=== PATIENT | female | born 1985 | race Caucasian/White ===

== ENCOUNTER 2022-12-22 11:50 | Emergency (ER) | payer OTHER ==
[~2022-12-22] VITALS: Ht 165.1 cm; Wt 71.3 kg
--- OUTSIDE RECORDS SUMMARY | ~2022-12-22 | XMS | Continuity of Care Document ---
Demographics + + + | Address | [address] | | | [place] [address] | + + + | Preferred Language | Unknown | + + + | Marital Status | Never | + + + | Bahai Affiliation | Unknown | + + + | Race | White | + + + | Ethnic Group | Not or | + + + Author + + + | Author | [facility] | + + + | Organization | [facility] | + + + | Address | [address] | | | [place] [address] | + + + | Phone | | + + + Care Team Providers + + + + | Care Front Office Supervisor Name | Role | Phone | + + + + Unavailable | Unavailable | + + + + Unavailable | Unavailable | + + + + Allergies and Intolerances + + + + + + | date | description | facility | reaction | severity | + + + + + + | (no date) | No Known | [facility] | (no reaction) | (no severity) | | | Allergies | | | | + + + + + + Encounters No information. Functional Status No information. Immunizations No information. Medications + + + + | date | description | facility | + + + + | 2022-11-28 00:00 | PENICILLIN V POTASSIUM | [facility] | + + + + | 2022-11-28 00:00 | HYDROCODONE | [facility] | | | BIT/ACETAMINOPHEN | | + + + + Problems + + + + | date | description | facility | + + + + | 2022-11-28 00:00 | Pharyngitis due to | [facility] | | | Streptococcus species | | + + + + | 2022-11-28 09:30 | STREPTOCOCCAL PHARYNGITIS | [facility] | + + + + | 2022-11-28 09:30 | ACUTE PHARYNGITIS, | [facility] | | | UNSPECIFIED | | + + + + | 2022-11-28 09:30 | LOCAL INFECTION OF THE | [facility] | | | SKIN AND SUBCUTANEOUS TISSU | | | | | | + + + + Procedures No information. Results/Labs +--------+--------+ +---------+--------+---------+ | test | date | facility | value | unit | notes | +--------+--------+ +---------+--------+---------+ + + | Result panel 1 | + + + + + + + + + | | 2022-11-28 | [facility] NE[facility] | (missing[facility] | (missing) | | (unavailable [facility] | | | | + + + + + + + + + | Result panel 2 | + + + + + + + + + | | 2022-11-28 | [facility] | NEGATIVE | (missing) | (missing) | | (unavailable | [facility] | | | | + + + + + + + + + | Result panel 3 | + + + + + + + + + | | 2022-11-28 | [facility] | NEGATIVE | (missing) | (missing) | | (unavailable | [facility]03[facility] | | | | + + + + + + + + + | Result panel 4 | + + + + + + + + + | | 2022-11-28 | [facility] | NEGATIVE | (missing) | (missing) | | (unavailable | [facility]03:07 [facility] | | | | + + + + + + + Social History + + + + | date | description | facility | + + + + | 2022-11-28 00:00 | Unknown if ever smoked | [facility] | + + + + Vital Signs + + + +---------+ | date | measurement | value | units | + + + +---------+ | 2022-11-28 00:00 | BMI | 25.8 | kg/m2 | + + + +---------+ | 2022-11-28 00:00 | BP_diastolic | 76 | mmHg | + + + +---------+ | 2022-11-28 00:00 | BP_systolic | 126 | mmHg | + + + +---------+ | 2022-11-28 00:00 | heart_rate | 77 | /min | + + + +---------+ | 2022-11-28 00:00 | height_metric | 165.1 | cm | + + + +---------+ | 2022-11-28 00:00 | height_standard | 65 | in | + + + +---------+ | 2022-11-28 00:00 | o2_saturation | 97 | % | + + + +---------+ | 2022-11-28 00:00 | respiration_rate | 16 | /min | + + + +---------+ | 2022-11-28 00:00 | temperature_metric | 36.89 | C | | | | | | + + + +---------+ | 2022-11-28 00:00 | | 98.4 | F | | | temperature_standar | | | | | d | | | + + + +---------+ | 2022-11-28 00:00 | weight_metric | 70.3 | kg | + + + +---------+ | 2022-11-28 00:00 | weight_standard | 154.98 | lb | + + + +---------+ | 2022-11-28 00:00 | weight_standard | 154.99 | lb | + + + +---------+"
--- OUTSIDE RECORDS SUMMARY | ~2022-12-22 | XMS | Continuity of Care Document ---
Demographics + + + | Address | [address] | | | [place] [address] | + + + | Preferred Language | Unknown | + + + | Marital Status | Never | + + + | Scientologist Affiliation | Unknown | + + + | Race | White | + + + | Ethnic Group | Not or | + + + Author + + + | Author | [facility] | + + + | Organization | [facility] | + + + | Address | [address] | | | [place] [address] | + + + | Phone | | + + + Care Team Providers + + + + | Care Nurse'S Companion Name | Role | Phone | + [...] 00:00 | PENICILLIN V POTASSIUM | [facility] | + + + + | 2022-11-28 00:00 | HYDROCODONE | [facility] | | | BIT/ACETAMINOPHEN | | + + + + Problems + + + + | date | description | facility | + + + + | 2022-11-28 00:00 | Pharyngitis due to | [facility] | | | Streptococcus species | | [...] | Unknown if ever smoked | [facility] | + + + + Vital Signs [...]
[~2022-12-22 11:50] MED LIST: HYDROCODON-ACE1 EA11 PO; PENICILLIN V P500 MG PO
--- OUTSIDE RECORDS SUMMARY | 2022-12-22 11:52 | XMS ---
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 Bernardo VISIT COUNT (12 MO.) 2 [facility] TOTAL 2 NOTE: Visits indicate total known visits. ED/UCC VISIT TRACKING (12 MO.) 12/22/2022 11:[address] [facility] TYPE: Emergency COMPLAINT: - VAGINAL CRAMPING 11/28/2022 09:[address] [facility] TYPE: Emergency COMPLAINT: - FLU SYMPTOMS, BODY ACHES, SORE/SWOLLEN THROAT DIAGNOSES: - Acute pharyngitis, unspecified - Contact with and (suspected) exposure to COVID-19 - Local infection of the skin and subcutaneous tissue, unspecified - Streptococcal pharyngitis INPATIENT VISIT TRACKING (12 MO.) No inpatient visits to display in this time frame [email or web address]
[2022-12-22 12:25] LABS: BILIRUBIN, URINE NEGATIVE (negative); BLOOD/HGB, URINE NEGATIVE (Negative); KETONE, URINE NEGATIVE (Negative); LEUK ESTERASE, URINE TRACE (negative); NITRITE, URINE NEGATIVE (negative); PH, URINE 5.5 (5-7)
[2022-12-22 12:34] LABS: RED BLOOD CELLS, URINE 0-1 /hpf (0-5)
[2022-12-22 12:35] LABS: BACTERIA, URINE NONE SEEN /hpf (negative); CASTS, URINE NONE SEEN \\lpf; COLLECTION TYPE, URINE CLEAN CATCH; CRYSTALS, URINE NONE SEEN (0-1+); EPITHELIAL CELLS, URINE SQUAMOUS 3+ /lpf (0-1+); REFLEX CULTURE, URINE No (No); WHITE BLOOD CELLS, URINE 0-1 /HPF (0-5)
[2022-12-22 12:46] LABS: BASOPHILS 0.5 % (0-2); EOSINOPHILS 0.4 % (0-6); HEMOGLOBIN 13.4 g/dL (12.0-18.0); LYMPHOCYTES 22.5 % (24-44); MCH 30.8 (27-36); MCHC 33.5 g/dl (30-36); MCV 91.7 fl (81-99); MONOCYTES 8.1 % (0-12); NEUTROPHILS 68.5 % (39-80); PLATELET COUNT 284 K/uL (140-440); RBC 4.37 M/ul (4.3-5.7)
[2022-12-22 13:25] LABS: ALBUMIN 3.7 g/dL (3.4-5.0); ALBUMIN/GLOBULIN RATIO 1.09 (1.1-2.4); ANION GAP 15.8 (7-21); BILIRUBIN, TOTAL 0.4 ng/dL (0.2-1.0); BUN/CREATININE RATIO 21.31 (6.0-28.6); CALCIUM 8.9 mg/dL (8.5-10.1); CREATININE, SERUM 0.61 mg/dL (0.55-1.02); POTASSIUM 3.8 mmol/L (3.5-5.1); PROTEIN, TOTAL 7.1 g/dL (6.4-8.2)
[2022-12-22] MEDS ORDERED: HYDROCODON-ACE1 EA10 PO ×2 (17:54)
[2022-12-22 18:06] VITALS: BP 110/78
== END 2022-12-22 18:08 | disposition home or self-care (01) ==
LOC: ED 11:50
PROVIDERS: Emergency Medicine
DX: O26.891 Other specified pregnancy related conditions, first trimester (principal); R10.2 Pelvic and perineal pain; Z3A.01 Less than 8 weeks gestation of pregnancy
CPT/HCPCS: 36415; 76801; 76817; 80053; 81001; 84702; 84703; 85025; 96374; 96375; 99284-25; J1170; J2405

== ENCOUNTER 2023-02-14 10:54 | Emergency (ER) | payer OTHER ==
[~2023-02-14] VITALS: Ht 165.1 cm; Wt 73.5 kg
[~2023-02-14 10:54] MED LIST changes: +HYDROCODON-ACE1 EA10 PO
[2023-02-14] MEDS ORDERED: PENICILLIN V P500 MG PO (12:07)
[2023-02-14] MEDS ORDERED: HYDROCODON-ACE1 EA11 PO (12:07)
[2023-02-14 12:21] VITALS: BP 116/75
== END 2023-02-14 12:14 | disposition home or self-care (01) ==
LOC: ED 10:54
DX: J02.0 Streptococcal pharyngitis (principal); B95.0 Streptococcus, group A, as the cause of diseases classified elsewhere
CPT/HCPCS: 87651; 99283; A9270

== ENCOUNTER 2024-03-21 14:33 | Emergency (ER) | payer OTHER ==
[~2024-03-21] VITALS: Ht 165.1 cm; Wt 82.5 kg
[~2024-03-21 14:33] MED LIST changes: +NASAL DECONGEST30 MG PO
[2024-03-21 14:56] LABS: BASOPHILS 0.3 % (0-2); EOSINOPHILS 0.9 % (0-6); HEMATOCRIT 36.6 % (35.0-50.0); HEMOGLOBIN 12.5 g/dL (12.0-18.0); LYMPHOCYTES 13.3 % (24-44); MCH 30.7 (27-36); MCV 90.2 fl (81-99); NEUTROPHILS 77.5 % (39-80); PLATELET COUNT 264 K/uL (140-440); RBC 4.06 M/ul (4.3-5.7); RDW 13.7 (10.5-15.0)
[2024-03-21] MEDS ORDERED: ondansetron HCL 4 MG/2 ML VIAL IV ONE (15:00)
[2024-03-21] MEDS ORDERED: SODIUM CHLORIDE 0.9% 500 ML IV ONE (15:00)
[2024-03-21 15:05] LABS: ALBUMIN 2.9 g/dL (3.4-5.0); ALBUMIN/GLOBULIN RATIO 0.66 (1.1-2.4); ANION GAP 12.3 (7-21); BILIRUBIN, TOTAL 0.2 ng/dL (0.2-1.0); BUN/CREATININE RATIO 15.85 (6.0-28.6); CALCIUM 8.3 mg/dL (8.5-10.1); CREATININE, SERUM 0.82 mg/dL (0.55-1.02); POTASSIUM 3.3 mmol/L (3.5-5.1); PROTEIN, TOTAL 7.3 g/dL (6.4-8.2)
[2024-03-21 15:18] LABS: BILIRUBIN, URINE POSITIVE (negative); BLOOD/HGB, URINE LARGE (Negative); KETONE, URINE SMALL (Negative); LEUK ESTERASE, URINE NEGATIVE (negative); NITRITE, URINE NEGATIVE (negative); PH, URINE 6.5 (5-7)
[2024-03-21 15:23] LABS: EPITHELIAL CELLS, URINE SQUAMOUS 3+ /lpf (0-1+)
[2024-03-21 15:25] LABS: BACTERIA, URINE RARE /hpf (negative); CASTS, URINE NONE SEEN \\lpf; COLLECTION TYPE, URINE CLEAN CATCH; CRYSTALS, URINE NONE SEEN (0-1+); REFLEX CULTURE, URINE No (No)
[2024-03-21] MEDS ORDERED: CEFEPIME HCL/D5W 2 GM/100 ML PIGGYBACK IV ONE (16:15)
[2024-03-21] MEDS ORDERED: ONDANSETRON ODT4 MG PO (16:51)
[2024-03-21 17:18] VITALS: BP 116/74
== END 2024-03-21 17:19 | disposition home or self-care (01) ==
LOC: ED 14:33
PROVIDERS: Emergency Medicine
DX: R11.2 Nausea with vomiting, unspecified (principal)
CPT/HCPCS: 36415; 80053; 81001; 83735; 84703; 85025; 96361; 96365; 96375; 99284-25; J0692; J2405; J7040

== ENCOUNTER 2024-11-20 11:14 | Emergency (ER) | payer OTHER ==
[~2024-11-20] VITALS: Ht 165.1 cm; Wt 80.0 kg
[~2024-11-20 11:14] MED LIST changes: +ONDANSETRON ODT4 MG PO
[2024-11-20] MEDS ORDERED: HYDROCODONE/APAP 10/325 1 TAB PO ONE (13:00)
[2024-11-20 13:03] VITALS: BP 133/80
== END 2024-11-20 13:03 | disposition home or self-care (01) ==
LOC: ED 11:14
DX: S83.005A Unspecified dislocation of left patella, initial encounter (principal); X50.1XXA Overexertion from prolonged static or awkward postures, initial encounter
CPT/HCPCS: 73560; 99283; A9270